=== PATIENT | female | born 2005 | race Caucasian/White ===

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

== ENCOUNTER 2024-03-08 09:06 | Emergency (ER) | payer SELFPAY ==
[~2024-03-08] VITALS: Ht 170.2 cm; Wt 133.3 kg
[~2024-03-08 09:06] MED LIST changes: +ATIVAN0.5 MG PO; +PREVACID30 M1 PO; +ZOFRAN4 MG/TAB PO
[2024-03-08 09:12] VITALS: BP 149/104
[2024-03-08 09:16] VITALS: BP 131/97
[2024-03-08] MEDS ORDERED: ASPIRIN 81 MG/TAB PO ONE (09:20)
[2024-03-08 10:18] LABS: BASO% 0.4 % (0-3); EOS% 1.1 % (0-8); HEMATOCRIT 40.5 % (37.0-47.0); HEMOGLOBIN 12.5 g/dl (12.0-16.0); IMMATURE GRANULOCYTES 0.1 % (0.0-5.0); LYMPH% 26.5 % (15-41); MEAN CELL VOLUME 85.6 fL CALC (80.0-100.0); MEAN CORPUSCULAR HGB 26.4 pG CALC (26.0-32.0); MEAN CORPUSCULAR HGB CONC 30.9 g/dL CAL (32.0-36.0); MONO% 6.7 % (2-13); NEUT# 7.4 thou/uL (2.00-7.15); NEUT% 65.2 % (42-76); RED BLOOD COUNT 4.73 mill/uL (4.20-5.60); RED CELL DISTRI WIDTH 15.1 % (11.5-15.5)
[2024-03-08 11:08] LABS: ALBUMIN 4.3 g/dL (3.2-5.0); ALKALINE PHOSPHATASE 59 u/l (38-126); ANION GAP 7 (6-22 (CALC)); BILIRUBIN, TOTAL 0.3 mg/dL (0.02-1.3); BUN 15 mg/dL (8-21); BUN/CREATININE RATIO 22 (12-20 (CALC)); CARBON DIOXIDE 28 mmol/l (22-30); CHLORIDE 109 mmol/l (95-108); CREATININE 0.7 mg/dL (0.5-1.0); ESTIMATED GFR 128 ML/MIN (>=90 (CALC)); POTASSIUM 3.8 mmol/l (3.5-5.1); SGOT/AST 34 u/l (14-36); SODIUM 140 mmol/l (137-146); TOTAL PROTEIN 7.6 g/dL (6.3-8.2)
[2024-03-08 12:48] VITALS: BP 131/97
== END 2024-03-08 13:48 | disposition home or self-care (01) | DRG 313 ==
LOC: ED 09:06
PROVIDERS: Family Medicine
DX: R07.9 Chest pain, unspecified (principal); E66.01 Morbid (severe) obesity due to excess calories; R73.03 Prediabetes; Z79.84 Long term (current) use of oral hypoglycemic drugs; Z20.822 Contact with and (suspected) exposure to COVID-19

== ENCOUNTER 2024-06-10 11:29 | Emergency (ER) | payer SELFPAY ==
[2024-06-10] VITALS (11 sets, daily range): BP systolic 154–178; BP diastolic 97–123
[~2024-06-10] VITALS: Ht 170.2 cm; Wt 136.0 kg
[2024-06-10] MEDS ORDERED: MOTRIN400 MG/TAB PO (12:57)
== END 2024-06-10 13:11 | disposition home or self-care (01) | DRG 558 ==
LOC: ED 11:29
DX: M72.2 Plantar fascial fibromatosis (principal); R73.03 Prediabetes

== ENCOUNTER 2024-10-04 23:55 | Emergency (ER) | payer SELFPAY ==
[~2024-10-04] VITALS: Ht 170.2 cm; Wt 132.0 kg
[~2024-10-04 23:55] MED LIST changes: +MOTRIN400 MG/TAB PO
[2024-10-05] MEDS ORDERED: ACETAMINOPHEN 500 MG TAB PO ONE (00:10)
[2024-10-05] MEDS ORDERED: TAM75CAP PO (00:39)
[2024-10-05] MEDS ORDERED: OSELTAMIVIR PHOSPHATE 75 MG/TAB CAP PO ONE (00:40)
[2024-10-05 00:44] VITALS: BP 158/101
== END 2024-10-05 00:55 | disposition home or self-care (01) | DRG 195 ==
LOC: ED 23:55
DX: J10.1 Influenza due to other identified influenza virus with other respiratory manifestations (principal); Z20.822 Contact with and (suspected) exposure to COVID-19

== ENCOUNTER 2024-12-04 22:23 | Emergency (ER) | payer SELFPAY ==
[~2024-12-04] VITALS: Ht 170.2 cm; Wt 133.8 kg
[~2024-12-04 22:23] MED LIST changes: +TAM75CAP PO
[2024-12-05] MEDS ORDERED: AZITHROMYCIN 250 MG/TAB PO ONE (00:20)
[2024-12-05 00:22] VITALS: BP 138/90
[2024-12-05] MEDS ORDERED: DECADRON4 MG PO (00:28)
[2024-12-05] MEDS ORDERED: AZITHROMYCIN500 MG PO (00:28)
[2024-12-05 00:31] VITALS: BP 142/90
[2024-12-05 01:15] VITALS: BP 142/90
== END 2024-12-05 01:18 | disposition home or self-care (01) | DRG 195 ==
LOC: ED 22:23
DX: J12.3 Human metapneumovirus pneumonia (principal); J00 Acute nasopharyngitis [common cold]; Z20.822 Contact with and (suspected) exposure to COVID-19